=== PATIENT | female | born 1960 | race Caucasian/White ===

== ENCOUNTER 2017-04-21 22:24 | Observation (INO) | payer BC ==
[2017-04-22 01:06] LABS: Basophils % (A) 1 %; CH 31.6; CHCM 35.1; Eosinophils # (A) 0.1 k/uL (0-0.7); Eosinophils % (A) 2 %; HCT 39.4 % (34.0-46.0); HDW 2.65; HGB 13.5 gm/dL (11.4-16.0); Luc # (Auto) 0.19; Luc % (Auto) 3; Lymphocytes # (A) 1.7 k/uL (1.0-4.8); Lymphocytes % (A) 30 %; MCHC 34.3 g/dL (31.0-37.0); MCV 90.4 fL (80.0-100.0); Mean Platelet Volume 8.2; Monocytes # (A) 0.3 k/uL (0-1.0); Monocytes % (A) 5 %; Neutrophils # (A) 3.3 k/uL (1.3-7.7); Neutrophils % (A) 58 %; RBC 4.36 m/uL (3.80-5.40); RDW 13.5 % (11.5-15.5); WBC 5.6 k/uL (3.8-10.6); WBC (Perox) 5.88
[2017-04-22 01:16] LABS: ALT 47 U/L (9-52); AST 28 U/L (14-36); Alkaline Phosphatase 71 U/L (38-126); Amylase 122 U/L (30-110); Anion Gap 12 mmol/L; Blood Urea Nitrogen 17 mg/dL (7-17); Calcium 11.3 mg/dL (8.4-10.2); Carbon Dioxide 24 mmol/L (22-30); Chloride 105 mmol/L (98-107); Glucose 95 mg/dL (74-99); Non-African American GFR(MDRD) >60 (>60 ml/min/1.73 sqM); Potassium 4.2 mmol/L (3.5-5.1); Sodium 141 mmol/L (137-145); Total Bilirubin 0.4 mg/dL (0.2-1.3)
[2017-04-22 01:20] LABS: Appearance,Urine Clear (Clear); Bacteria,Urine Rare /hpf; Bilirubin,Urine Negative (Negative); Glucose,Urine (UA) Negative (Negative); Ketones,Urine Negative (Negative); Leukocyte Esterase,Urine Large (Negative); Nitrite,Urine Negative (Negative); Particle Count 733; Protein,Urine Negative (Negative); RBC,Urine 1 /hpf (0-5); Specific Gravity,Urine 1.004 (1.001-1.035); Squamous Epithelial Cell,Urine 1 /hpf (0-4); UA Billing (MACRO vs. MICRO) MICRO; Urobilinogen,Urine <2.0 mg/dL (<2.0); WBC,Urine 5 /hpf (0-5)
--- NOTE | 2017-04-22 02:29 | US ---
EXAM: US Abdomen Limited, Right Upper Quadrant CLINICAL HISTORY: Reason: Pain, attention RUQ TECHNIQUE: Real-time ultrasound of the right upper quadrant with image documentation. COMPARISON: No relevant prior studies available. FINDINGS: Liver: The liver is enlarged measuring 20 cm with increased echogenicity suggesting hepatic steatosis. Gallbladder: No gallstones, sludge, gallbladder wall thickening or pericholecystic fluid. Negative sonographic Butterfield's sign. Common bile duct: The common hepatic duct measures up to 4 mm. Pancreas: Unremarkable as visualized. Right kidney: The right kidney measures up to 10.1 cm. No stones. No hydronephrosis. IMPRESSION: Hepatomegaly with hepatic steatosis.
[2017-04-22] MEDS ORDERED: MORPHINE SULFATE 4 MG/ML SYRINGE IV STA (02:47)
[2017-04-22] MEDS ORDERED: NALOXONE 0.4 MG/ML 1 ML VIAL IV PRN (03:59)
[2017-04-22] MEDS ORDERED: MORPHINE SULFATE 4 MG/ML SYRINGE IV PRN (03:59)
--- NOTE | 2017-04-22 03:59 | ED ---
Abdominal Pain HPI - General Chief Complaint: Abdominal Pain Stated Complaint: Flank /Back Pain Time Seen by Provider: 04/21/17 23:34 Source: patient Mode of arrival: ambulatory Limitations: no limitations - History of Present Illness Initial Comments: This patient is a 56-year-old woman who presents to be valid for upper abdominal pain that does radiate towards her back. The patient states that it came on oxygen at 3-4 hours ago. This was a bit after she had eaten her dinner. It was coming by some nausea. She describes pain as a dull aching, constant, moderate intensity. She has not discovered any relieving factors and again symptom and made worse when she ate dinner. MD Complaint: abdominal pain Onset/Timin -: hour(s) Location: epigastric Radiation: back Migration to: no migration Severity: moderate Quality: aching Consistency: constant Improves With: nothing Worsens With: eating Associated Symptoms: nausea - Related Data Home Medications Medication Instructions Recorded Confirmed Escitalopram Oxalate [Lexapro] 04/21/17 buPROPion HCL [Wellbutrin XL] 300 mg PO DAILY 04/21/17 04/21/17 Allergies Allergy/AdvReac Type Severity Reaction Status Date / Time No Known Allergies Allergy Verified 04/21/17 22:41 Review of Systems ROS Statement: Those systems with pertinent positive or pertinent negative responses have been documented in the HPI. ROS Other: All systems not noted in ROS Statement are negative. Constitutional: Denies: fever, chills Respiratory: Denies: cough, dyspnea, wheezes Cardiovascular: Denies: chest pain, palpitations, edema, syncope Gastrointestinal: Reports: as per HPI, abdominal pain, nausea. Denies: vomiting , diarrhea, constipation, melena, hematochezia Genitourinary: Denies: dysuria, hematuria Musculoskeletal: Reports: as per HPI, back pain Skin: Denies: rash Neurological: Denies: headache, weakness, numbness Past Medical History Additional Past Medical History / Comment(s): anal fistula, sepsis, mystenia gravis. History of Any Multi-Drug Resistant Organisms: None Reported Past Surgical History: Section, Hysterectomy, Tonsillectomy Additional Past Surgical History / Comment(s): colonoscopy, thymectomy Past Psychological History: Anxiety, Depression Smoking Status: Current some day smoker Past Alcohol Use History: Occasional Past Drug Use History: None Reported - Past Family History Mother Family Medical History: Congestive Heart Failure (CHF) Sister(s) Family Medical History: Cancer Additional Family Medical History / Comment(s): breast cancer and leukemia General Exam Limitations: no limitations General appearance: alert, in no apparent distress, obese Head exam: Present: atraumatic, normocephalic Eye exam: Present: normal appearance. Absent: scleral icterus, conjunctival injection ENT exam: Present: normal oropharynx Neck exam: Present: normal inspection Respiratory exam: Present: normal lung sounds bilaterally. Absent: respiratory distress, wheezes, rales, rhonchi, stridor Cardiovascular Exam: Present: regular rate, normal rhythm, normal heart sounds GI/Abdominal exam: Present: soft, tenderness (There is mild epigastric tenderness without rebound or guarding), normal bowel sounds. Absent: distended , guarding, rebound, pulsatile mass, hernia Extremities exam: Present: normal inspection, normal capillary refill. Absent: pedal edema, calf tenderness Back exam: Present: normal inspection. Absent: CVA tenderness (R), CVA tenderness (L) Neurological exam: Present: alert Skin exam: Present: warm, dry, intact, normal color. Absent: rash Course Vital Signs 04/21/17 04/22/17 04/22/17 22:36 01:49 02:36 Temperature 97.9 F 97.0 F L 97.4 F L Pulse Rate 67 55 L 57 L Respiratory 20 16 18 Rate Blood Pressure 120/82 146/72 148/85 O2 Sat by Pulse 100 99 97 Oximetry 04/22/17 04:15 Temperature 97.6 F Pulse Rate 57 L Respiratory 16 Rate Blood Pressure 109/58 O2 Sat by Pulse 100 Oximetry Medical Decision Making - Medical Decision Making Patient is a 56-year-old woman with pancreatitis. She continued to be symptomatic despite medications and will admit patient to have the GI consult. - Lab Data Result diagrams: 04/22/17 00:41 04/22/17 00:41 Lab Results 04/22/17 04/22/17 04/22/17 Range/Units 00:31 00:31 00:41 WBC (3.8-10.6) k/uL RBC (3.80-5.40) m/uL Hgb (11.4-16.0) gm/dL Hct (34.0-46.0) % MCV (80.0-100.0) fL MCH (25.0-35.0) pg MCHC (31.0-37.0) g/dL RDW (11.5-15.5) % Plt Count (150-450) k/uL Neutrophils % % Lymphocytes % % Monocytes % % Eosinophils % % Basophils % % Neutrophils # (1.3-7.7) k/uL Lymphocytes # (1.0-4.8) k/uL Monocytes # (0-1.0) k/uL Eosinophils # (0-0.7) k/uL Basophils # (0-0.2) k/uL Sodium 141 (137-145) mmol/L Potassium 4.2 (3.5-5.1) mmol/L Chloride 105 (98-107) mmol/L Carbon Dioxide 24 (22-30) mmol/L Anion Gap 12 mmol/L BUN 17 (7-17) mg/dL Creatinine 0.80 (0.52-1.04) mg/dL Est GFR (MDRD) Af Amer >60 (>60 ml/min/1.73 sqM) Est GFR (MDRD) Non-Af >60 (>60 ml/min/1.73 sqM) Glucose 95 (74-99) mg/dL Calcium 11.3 H (8.4-10.2) mg/dL Total Bilirubin 0.4 (0.2-1.3) mg/dL AST 28 (14-36) U/L ALT 47 (9-52) U/L Alkaline Phosphatase 71 (38-126) U/L Total Protein 7.0 (6.3-8.2) g/dL Albumin 4.4 (3.5-5.0) g/dL Amylase 122 H (30-110) U/L Lipase 687 H (23-300) U/L Urine Color Colorless Urine Appearance Clear (Clear) Urine pH 8.0 (5.0-8.0) Ur Specific Dewar 1.004 (1.001-1.035) Urine Protein Negative (Negative) Urine Glucose (UA) Negative (Negative) Urine Ketones Negative (Negative) Urine Blood Negative (Negative) Urine Nitrite Negative (Negative) Urine Bilirubin Negative (Negative) Urine Urobilinogen <2.0 (<2.0) mg/dL Ur Leukocyte Esterase Large H (Negative) Urine RBC 1 (0-5) /hpf Urine WBC 5 (0-5) /hpf Urine WBC Clumps Rare H (None) /hpf Ur Squamous Epith Cells 1 (0-4) /hpf Urine Bacteria Rare H (None) /hpf Urine HCG, Qual Not Detected (Not Detectd) 04/22/17 Range/Units 00:41 WBC 5.6 (3.8-10.6) k/uL RBC 4.36 (3.80-5.40) m/uL Hgb 13.5 (11.4-16.0) gm/dL Hct 39.4 (34.0-46.0) % MCV 90.4 (80.0-100.0) fL MCH 31.0 (25.0-35.0) pg MCHC 34.3 (31.0-37.0) g/dL RDW 13.5 (11.5-15.5) % Plt Count 177 (150-450) k/uL Neutrophils % 58 % Lymphocytes % 30 % Monocytes % 5 % Eosinophils % 2 % Basophils % 1 % Neutrophils # 3.3 (1.3-7.7) k/uL Lymphocytes # 1.7 (1.0-4.8) k/uL Monocytes # 0.3 (0-1.0) k/uL Eosinophils # 0.1 (0-0.7) k/uL Basophils # 0.0 (0-0.2) k/uL Sodium (137-145) mmol/L Potassium (3.5-5.1) mmol/L Chloride (98-107) mmol/L Carbon Dioxide (22-30) mmol/L Anion Gap mmol/L BUN (7-17) mg/dL Creatinine (0.52-1.04) mg/dL Est GFR (MDRD) Af Amer (>60 ml/min/1.73 sqM) Est GFR (MDRD) Non-Af (>60 ml/min/1.73 sqM) Glucose (74-99) mg/dL Calcium (8.4-10.2) mg/dL Total Bilirubin (0.2-1.3) mg/dL AST (14-36) U/L ALT (9-52) U/L Alkaline Phosphatase (38-126) U/L Total Protein (6.3-8.2) g/dL Albumin (3.5-5.0) g/dL Amylase (30-110) U/L Lipase (23-300) U/L Urine Color Urine Appearance (Clear) Urine pH (5.0-8.0) Ur Specific Dewar (1.001-1.035) Urine Protein (Negative) Urine Glucose (UA) (Negative) Urine Ketones (Negative) Urine Blood (Negative) Urine Nitrite (Negative) Urine Bilirubin (Negative) Urine Urobilinogen (<2.0) mg/dL Ur Leukocyte Esterase (Negative) Urine RBC (0-5) /hpf Urine WBC (0-5) /hpf Urine WBC Clumps (None) /hpf Ur Squamous Epith Cells (0-4) /hpf Urine Bacteria (None) /hpf Urine HCG, Qual (Not Detectd) Disposition Clinical Impression: Abdominal pain, Pancreatitis Disposition: ADMITTED IP TO THIS HOSP Condition: Fair
[2017-04-22] MEDS: SODIUM CHLORIDE 0.9% 1,000 ML IV SCH ×3 (04:42→20:44)
[2017-04-22 05:03] VITALS: BMI 33.6
[2017-04-22] MEDS: ESCITALOPRAM 20 MG TAB PO SCH (08:34)
[2017-04-22] MEDS: buPROPion XL 300 MG TAB.ER.24H PO SCH (08:34)
[2017-04-22] MEDS: FAMOTIDINE 20 MG TAB PO SCH ×2 (08:34→23:24)
[2017-04-22 08:51] LABS: Amylase 115 U/L (30-110)
--- NOTE | 2017-04-22 12:03 | HP ---
DATE OF ADMISSION: CHIEF COMPLAINT: A 56-year-old white female with acute abdominal pain. HISTORY OF PRESENT ILLNESS: This is 56-year-old white female with a history of mood disorder, came to the hospital due to severe abdominal pain, patient never had before, in left upper quadrant of her abdomen 8 to 10 out of 10, worse after she ate her dinner with some nausea, dull aching, constant, minor intensity. No aggravating factor. Epigastric radiating to the back, constant with nausea. HOME MEDICATIONS: 1. Wellbutrin XL 300 daily. 2. Lexapro 20 daily. ALLERGIES: Negative. REVIEW OF SYSTEMS: Fourteen-point review of systems negative except as mentioned in HPI. PAST MEDICAL HISTORY: Anal fistula, sepsis, myasthenia gravis. SURGERY: , hysterectomy, tonsillectomy, colonoscopy, thymectomy. Anxiety, depression. Current every day smoker. She is . She has 2 kids. She likes to travel. PAST FAMILY HISTORY: Mother CHF, sister some kind of cancer. PHYSICAL EXAM: Temp 97, pulse 57 to 67, respiratory rate 18 to 20, blood pressure 120s to 140s over 60s to 80s. O2 is 97% to 100% on room air. CARDIOVASCULAR: S1, S2. LUNGS: Transmitted upper airway sounds. GI: Increased bowel sounds. Diffuse tenderness. No mass, no organomegaly. HEMATOLOGIC: Negative Homans. PSYCH: Fair mood and affect. OPHTHALMOLOGIC: Pupils equal, round, react to light and accommodation. NEUROLOGIC: Alert and oriented x3. PSYCHIATRIC: Fair mood and affect. INTEGUMENT: No rashes, excoriations, bruising. Labs show amylase 122, lipase 687. UA showed large leukocyte esterase. ASSESSMENT: 1. Acute pancreatitis. 2. Abdominal pain secondary to pancreatitis. 3. Acute dehydration. Surgical consultation. Ultrasound shows no evidence of cholecystitis. Will check lipid panel. Await further orders. In the meantime, clear liquid diet, pain control.
--- NOTE | 2017-04-22 12:13 | P.CONS ---
History of Present Illness - Reason for Consult Consult date: 04/22/17 pancreatitis Requesting physician: Storm Sanchez - History of Present Illness 56-year-old female admitted with one-day history of midepigastric pain after eating meatball dinner last night. Consultation requested for pancreatitis. No history of pancreatitis, EtOH abuse. History of myasthenia gravis diagnosed in 1982 remission in 1985. Denies fever, chills, changes in the color or urine or acholic stools. No weight loss. Calcium 11.3. Lipase 500-600 range. Normal LFTs. Ultrasound reported no stones or focal liver lesions. Hepatic steatosis. Review of Systems Constitutional: Denies fever, chills, sweats, weight gain, or loss. HEENT: Negative for migraines, blurred vision or loss, earaches, drainage, tinnitus, oral mucosal lesions, dysphagia, or odynophagia. CARDIAC: Negative for chest pain, arrhythmias, or palpitation. RESPIRATORY: Negative for shortness of breath, hemoptysis, cough, or sputum production. GI: See HPI for pertinent findings. : Negative for hematuria, urgency, frequency, polyuria, or dysuria. GYNc: Denies possibility of . Negative vaginal discharge. MUSCULOSKELETAL: Negative for muscle aches, swelling, arthritis, and arthralgias. NEUROLOGIC: Myasthenia gravis. Negative for stroke or TIA. ENDOCRINE: Negative for thyroid problems. SKIN: Negative for rash or itching. PSYCHIATRIC: Negative history for depression and anxiety All systems: negative (See HPI) Past Medical History Additional Past Medical History / Comment(s): anal fistula, sepsis, mystenia gravis. History of Any Multi-Drug Resistant Organisms: None Reported Past Surgical History: Section, Hysterectomy, Tonsillectomy Additional Past Surgical History / Comment(s): colonoscopy, thymectomy Past Anesthesia/Blood Transfusion Reactions: Previous Problems w/ Anesthesia Past Psychological History: Anxiety, Depression Smoking Status: Current some day smoker Past Alcohol Use History: Occasional Past Drug Use History: None Reported - Past Family History Mother Family Medical History: Congestive Heart Failure (CHF) Sister(s) Family Medical History: Cancer Additional Family Medical History / Comment(s): breast cancer and leukemia Medications and Allergies Home Medications Medication Instructions Recorded Confirmed Type buPROPion HCL [Wellbutrin XL] 300 mg PO DAILY 04/21/17 04/22/17 History Allergies Allergy/AdvReac Type Severity Reaction Status Date / Time No Known Allergies Allergy Verified 04/22/17 08:10 Physical Exam Vitals: Vital Signs Temp Pulse Pulse Resp BP BP Pulse Ox 04/22/17 07:00 97.8 F 57 L 14 113/71 98 04/22/17 04:40 97.8 F 53 L 17 136/81 98 04/22/17 04:15 97.6 F 57 L 16 109/58 100 04/22/17 02:36 97.4 F L 57 L 18 148/85 97 04/22/17 01:49 97.0 F L 55 L 16 146/72 99 04/21/17 22:36 97.9 F 67 20 120/82 100 Intake and Output 04/21/17 04/22/17 04/22/17 22:59 06:59 14:59 Intake Total 20 360 Balance 20 360 Intake: IV 20 Sodium Chloride 0.9% 1, 20 000 ml @ 20 mls/hr IV . Q24H [facility] Rx#:[id number] Oral 360 Other: Voiding Method Toilet Toilet Weight 86.183 kg 86.183 kg General appearance: The patient is alert, oriented, in no acute distress. HET: Head is normocephalic and atraumatic. Pupils are equal and reactive. Oropharynx is clear without lesions. Neck: Supple without lymphadenopathy. Trachea midline. Heart: S1 S2. Regular rate and rhythm. Lungs: No crackles or wheezes are heard. Abdomen: Soft, very mild midepigastric tenderness, nondistended with bowel sounds. No peritoneal signs. No palpable organomegaly or masses. Extremities: Normal skin color and turgor. No cyanosis, rash, ulceration, clubbing, or edema. Radial and pedal pulses are 2/4 bilaterally. Neurological: No focal deficits. Strength and sensation are grossly intact. Results CBC & Chem 7: 04/22/17 00:41 04/22/17 00:41 Labs: Abnormal Lab Results - Last 24 Hours (Table) 04/22/17 04/22/17 04/22/17 Range/Units 00:31 00:41 08:29 Calcium 11.3 H (8.4-10.2) mg/dL Amylase 122 H 115 H (30-110) U/L Lipase 687 H 507 H (23-300) U/L Ur Leukocyte Esterase Large H (Negative) Urine WBC Clumps Rare H (None) /hpf Urine Bacteria Rare H (None) /hpf US - abdomen: report reviewed (Dr. Combs) Assessment and Plan (1) Pancreatitis Narrative/Plan: Etiology unclear possible autoimmune possible viral possible passage of microlithiasis even though ultrasound imaging reported no stones and LFTs within normal limits. Status: Acute Plan: 1. IgG subclass 4. APARNA. Triglycerides. 2. Diet as tolerated. Discharge per medicine. Follow up in GI office after discharge for reevaluation. No further workup at this time. Thank you for this kind referral and the opportunity to participate in the care of your patient. This consultation was discussed with Dr. Combs. The impression and plan of care have been directed as dictated.
[2017-04-22] MEDS: ACETAMINOPHEN TAB 325 MG TAB PO PRN ×2 (13:45→20:22)
[2017-04-22] MEDS ORDERED: traMADol 50 MG TAB PO PRN (15:31)
--- NOTE | 2017-04-22 17:08 | P.GSCN ---
History of Present Illness Consult date: 04/22/17 Reason for Consult: Pancreatitis. History of present illness: Thank you very much for asking us to see this patient. She is a 56-year-old white female who developed a first episode of midepigastric pain last night after meatball dinner. Had some dry heaves. No past history of similar problem. No excessive alcohol intake. She presented to the emergency room. Amylase and lipase were elevated with a lipase over the 600 range. It has dropped down low but today. LFTs were otherwise normal. Showed no evidence of gallstones. Does have elevated calcium of 11.3. Past history well-documented. Positive for anxiety depression. History of MS. Anal fistula surgery. Otherwise fairly healthy. Family history. The for gallbladder disease in her mother and a sister. No chest pain. No cough hemoptysis. No urinary symptoms. No vaginal discharge. systems review as above. On examination patient is well-built well-nourished anicteric. Overweight. In no acute distress. Temperature is normal. Vitals are normal. Abdomen is quite soft with minimal epigastric tenderness no guarding or rebound no mass in the right upper quadrant or epigastric area. No hernias noted. Extremities normal. TOW DRIVER intact. Labs were reviewed. Amylase and lipase as above slowly improving. WBC is normal. Impression. Pancreatitis etiology undetermined. No evidence of gallstones. Rule out hyperlipidemia hypercalcemia. Recommendation. Continued medical management. He would the GI consult. Nothing surgical to offer at this time. Past Medical History Additional Past Medical History / Comment(s): anal fistula, sepsis, mystenia gravis. History of Any Multi-Drug Resistant Organisms: None Reported Past Surgical History: Section, Hysterectomy, Tonsillectomy Additional Past Surgical History / Comment(s): colonoscopy, thymectomy Past Anesthesia/Blood Transfusion Reactions: Previous Problems w/ Anesthesia Past Psychological History: Anxiety, Depression Smoking Status: Current some day smoker Past Alcohol Use History: Occasional Past Drug Use History: None Reported - Past Family History Mother Family Medical History: Congestive Heart Failure (CHF) Sister(s) Family Medical History: Cancer Additional Family Medical History / Comment(s): breast cancer and leukemia Medications and Allergies Home Medications Medication Instructions Recorded Confirmed Type buPROPion HCL [Wellbutrin XL] 300 mg PO DAILY 04/21/17 04/22/17 History Allergies Allergy/AdvReac Type Severity Reaction Status Date / Time No Known Allergies Allergy Verified 04/22/17 08:10 Surgical - Exam Vital Signs Temp Pulse Resp BP Pulse Ox 97.9 F 67 20 120/82 100 04/21/17 22:36 04/21/17 22:36 04/21/17 22:36 04/21/17 22:36 04/21/17 22:36 Results - Labs 04/22/17 00:41 04/22/17 00:41 Abnormal Lab Results - Last 24 Hours (Table) 04/22/17 04/22/17 04/22/17 Range/Units 00:31 00:41 08:23 Calcium 11.3 H (8.4-10.2) mg/dL Triglycerides 363 H (<150) mg/dL Amylase 122 H (30-110) U/L Lipase 687 H (23-300) U/L Ur Leukocyte Esterase Large H (Negative) Urine WBC Clumps Rare H (None) /hpf Urine Bacteria Rare H (None) /hpf 04/22/17 Range/Units 08:29 Calcium (8.4-10.2) mg/dL Triglycerides (<150) mg/dL Amylase 115 H (30-110) U/L Lipase 507 H (23-300) U/L Ur Leukocyte Esterase (Negative) Urine WBC Clumps (None) /hpf Urine Bacteria (None) /hpf Microbiology - Last 24 Hours (Table) 04/22/17 11:20 Urine Culture - Preliminary Urine,Voided Diabetes panel 04/22/17 04/22/17 Range/Units 00:41 08:23 Sodium 141 (137-145) mmol/L Potassium 4.2 (3.5-5.1) mmol/L Chloride 105 (98-107) mmol/L Carbon Dioxide 24 (22-30) mmol/L BUN 17 (7-17) mg/dL Creatinine 0.80 (0.52-1.04) mg/dL Glucose 95 (74-99) mg/dL Calcium 11.3 H (8.4-10.2) mg/dL AST 28 (14-36) U/L ALT 47 (9-52) U/L Alkaline Phosphatase 71 (38-126) U/L Total Protein 7.0 (6.3-8.2) g/dL Albumin 4.4 (3.5-5.0) g/dL Triglycerides 363 H (<150) mg/dL Calcium panel 04/22/17 Range/Units 00:41 Calcium 11.3 H (8.4-10.2) mg/dL Albumin 4.4 (3.5-5.0) g/dL Pituitary panel 04/22/17 Range/Units 00:41 Sodium 141 (137-145) mmol/L Potassium 4.2 (3.5-5.1) mmol/L Chloride 105 (98-107) mmol/L Carbon Dioxide 24 (22-30) mmol/L BUN 17 (7-17) mg/dL Creatinine 0.80 (0.52-1.04) mg/dL Glucose 95 (74-99) mg/dL Calcium 11.3 H (8.4-10.2) mg/dL Adrenal panel 04/22/17 Range/Units 00:41 Sodium 141 (137-145) mmol/L Potassium 4.2 (3.5-5.1) mmol/L Chloride 105 (98-107) mmol/L Carbon Dioxide 24 (22-30) mmol/L BUN 17 (7-17) mg/dL Creatinine 0.80 (0.52-1.04) mg/dL Glucose 95 (74-99) mg/dL Calcium 11.3 H (8.4-10.2) mg/dL Total Bilirubin 0.4 (0.2-1.3) mg/dL AST 28 (14-36) U/L ALT 47 (9-52) U/L Alkaline Phosphatase 71 (38-126) U/L Total Protein 7.0 (6.3-8.2) g/dL Albumin 4.4 (3.5-5.0) g/dL
[2017-04-22 21:34] LABS: ANA w/Reflex to Titer NEGATIVE (NEGATIVE)
[2017-04-23 02:15] VITALS: RESP 16
[2017-04-23] MEDS: SODIUM CHLORIDE 0.9% 1,000 ML IV SCH (04:23)
[2017-04-23] MEDS: FAMOTIDINE 20 MG TAB PO SCH (07:16)
[2017-04-23] MEDS: ESCITALOPRAM 20 MG TAB PO SCH (07:17)
[2017-04-23] MEDS: buPROPion XL 300 MG TAB.ER.24H PO SCH (07:17)
[2017-04-23 07:45] LABS: Ionized Calcium 5.3 mg/dL (4.5-5.3)
[2017-04-23 08:17] LABS: Amylase 46 U/L (30-110); Calcium 8.9 mg/dL (8.4-10.2)
[2017-04-23 08:39] VITALS: BP 123/55; PULSE 58; TEMP 97.5
[2017-04-23] MEDS ORDERED: SULFAMETHOX-TMP 800-160MG 1 EACH TAB PO SCH (11:00)
--- NOTE | 2017-04-23 11:06 | P.DS ---
Providers Date of admission: 04/22/17 03:59 Expected date of discharge: 04/23/17 Attending physician: Storm Pineda Consults: 04/22/17 04:00 Consult Physician Routine Consulting Provider: Mckenzie Null Consult Reason/Comments: pancreatitis. abdominal pain. Do you want consulting provider notified?: Yes 04/22/17 08:08 Consult Physician Routine Consulting Provider: Valeriy Londono Consult Reason/Comments: abdominal pain Do you want consulting provider notified?: Yes Primary care physician: Physician Nonstaff Hospital Course: 56-year-old female presented to the emergency room with a first-time new onset mid epigastric pain after eating a meatball dinner patient denies any use of alcohol. Denies any prior episodes of pancreatitis. Patient has a history of myasthenia gravis diagnosed in 1982 has been in remission since 1985 H was admitted to the services of the attending. A gastroenterology consultation obtained. Patient was noted to have normal liver function studies lipase on admission was 500. Patient denied any weight loss. Ultrasound of the abdomen showed no stones no focal liver lesions. Hepatic steatosis. Patient was started on IV hydration. GI recommended the patient could be discharged and they would see the patient in a outpatient setting for reevaluation there was no further workup at this time. Additionally patient was seen by surgical service Dr. Petty who indicated there was no surgical intervention warranted at this time no further recommendations at the time of discharge patient tolerated diet was no further episodes of midepigastric discomfort patient was felt to be stable and appropriate to proceed with discharge home the lipase and amylase were normal. The lipase was 110. Amylase 46. AST and ALT were not elevated Impression discharge diagnosis Present on admission midepigastric pain unclear etiology suspect acute pancreatitis with elevated pancreatic enzymes Present on admission acute pancreatitis Etiology unclear possible autoimmune possible viral possible passage of microlithiasis even though ultrasound imaging reported no stones and LFTs within normal limits. History of myasthenia gravis in remission Present on admission UTI not ruled out The above dictated assessment and findings were discussed with dr pineda . Impression and the plan of care have been dictated as directed. Noris Lyons nurse practitioner acting as a scribe for dr pineda Patient Condition at Discharge: Fair Plan - Discharge Summary New Discharge Prescriptions: New Sulfamethox-Tmp 800-160Mg [Bactrim DS 800-160 mg] 1 each PO BID #14 tab No Action buPROPion HCL [Wellbutrin XL] 300 mg PO DAILY Discharge Medication List buPROPion HCL [Wellbutrin XL] 300 mg PO DAILY 04/21/17 [History] Sulfamethox-Tmp 800-160Mg [Bactrim DS 800-160 mg] 1 each PO BID #14 tab [Rx] Follow up Appointment(s)/Referral(s): Nonstaff,Physician [Primary Care Provider] - 1-2 days Shiraz Combs MD [STAFF PHYSICIAN] - 1 Week Patient Instructions/Handouts: Abdominal Pain (ED) Activity/Diet/Wound Care/Special Instructions: IgG subclass 4 and APARNA blood testing; Call GI office after discharge for results. [phone] Follow-up on the parathyroid study were sent out within the next couple days results should be back call dr pineda office [phone] Discharge Disposition: HOME SELF-CARE
[2017-04-23 11:30] LABS: Appearance,Urine Clear (Clear); Bacteria,Urine Rare /hpf; Bilirubin,Urine Negative (Negative); Glucose,Urine (UA) Negative (Negative); Ketones,Urine Negative (Negative); Leukocyte Esterase,Urine Moderate (Negative); Mucus,Urine Rare /hpf; Nitrite,Urine Negative (Negative); PH, Urine 6.5 (5.0-8.0); Particle Count 1524; Protein,Urine Negative (Negative); RBC,Urine 2 /hpf (0-5); Specific Gravity,Urine 1.003 (1.001-1.035); Squamous Epithelial Cell,Urine 1 /hpf (0-4); UA Billing (MACRO vs. MICRO) MICRO; Urobilinogen,Urine <2.0 mg/dL (<2.0); WBC,Urine 3 /hpf (0-5)
--- NOTE | 2017-04-23 11:36 | P.PN ---
Subjective Principal diagnosis: Pancreatitis 66-year-old female with a history of myasthenia gravis admitted with epigastric pain and elevated amylase lipase system with acute pancreatitis. Etiology of pancreatitis and clear. APARNA screen negative. Subclass IgG1-4 pending. Abdominal pain improved. Tolerating diet. Triglycerides 363. Objective - Vital Signs Vital signs: Vital Signs Temp 97.5 F L 04/23/17 07:00 Pulse 58 L 04/23/17 07:00 Resp 16 04/23/17 07:00 BP 123/55 04/23/17 07:00 Pulse Ox 97 04/23/17 07:00 Intake & Output 04/22/17 04/23/17 04/23/17 18:59 06:59 18:59 Intake Total 960 1500 600 Balance 960 1500 600 Intake: IV 1500 Sodium Chloride 0.9% 1, 1500 000 ml @ 125 mls/hr IV . Q8H STEPHANIE Rx#:[id number] Oral 960 600 Other: Voiding Method Toilet Toilet Toilet # Voids 2 2 - Exam General appearance: The patient is alert, oriented, in no acute distress. HET: Head is normocephalic and atraumatic. Pupils are equal and reactive. Oropharynx is clear without lesions. Neck: Supple without lymphadenopathy. Trachea midline. Heart: S1 S2. Regular rate and rhythm. Lungs: No crackles or wheezes are heard. Abdomen: Soft, nontender, nondistended with bowel sounds. No peritoneal signs. No palpable organomegaly or masses. Extremities: Normal skin color and turgor. No cyanosis, rash, ulceration, clubbing, or edema. Radial and pedal pulses are 2/4 bilaterally. Neurological: No focal deficits. Strength and sensation are grossly intact. - Labs CBC & Chem 7: 04/22/17 00:41 04/22/17 00:41 Labs: Abnormal Lab Results - Last 24 Hours (Table) 04/22/17 04/23/17 Range/Units 08:23 10:56 Triglycerides 363 H (<150) mg/dL Ur Leukocyte Esterase Moderate H (Negative) Urine Bacteria Rare H (None) /hpf Urine Mucus Rare H (None) /hpf Microbiology - Last 24 Hours (Table) 04/22/17 11:20 Urine Culture - Preliminary Urine,Voided Assessment and Plan (1) Pancreatitis Narrative/Plan: Etiology unclear Status: Acute Plan: 1. Agreeable for discharge. APARNA screen was discussed with patient. Patient was advised to follow up with primary regarding elevated triglyceride level. Patient can call GI office after discharge for additional chemistry results. No further workup at this time. Follow-up in office as needed. Assessment and plan a care discussed with Dr. Combs
[2017-04-23 12:29] LABS: IgG Subclass 3 73.3 mg/dL (11.0-85.0)
[2017-04-23 14:34] LABS: IgG Subclass 4 1.4 mg/dL (3.0-175.0)
== END 2017-04-23 12:08 | disposition home or self-care (01) ==
LOC: EC 22:24 → 3SUR 04-22 03:59
PROVIDERS: ADMIT Family Medicine; ATTEND Family Medicine
DX: R10.13 Epigastric pain (principal); K85.90 Acute pancreatitis without necrosis or infection, unspecified; G70.00 Myasthenia gravis without (acute) exacerbation; N39.0 Urinary tract infection, site not specified; E86.0 Dehydration; F41.9 Anxiety disorder, unspecified; F32.9 Major depressive disorder, single episode, unspecified; F39 Unspecified mood [affective] disorder; Z79.899 Other long term (current) drug therapy; F17.200 Nicotine dependence, unspecified, uncomplicated; Z82.49 Family history of ischemic heart disease and other diseases of the circulatory system; E66.3 Overweight
CPT/HCPCS: 99285; 96374; 96361 ×2; 36415; 80053; 82330; 82150 ×2; 82310; 83690 ×2; 84478; 85025; 81001 ×2; 81025; 82787; 86038; 83970; 87086; 76705; G0378 ×2; J2270

== ENCOUNTER 2018-05-27 01:32 | Emergency (ER) | payer BC, OTHER ==
[2018-05-27 01:51] VITALS: BP 130/84; PULSE 55; TEMP 97.5
[2018-05-27] MEDS ORDERED: MORPHINE SULFATE 4 MG/ML SYRINGE IM STA (02:14)
--- NOTE | 2018-05-27 02:27 | ED ---
General Adult HPI - General Chief complaint: Extremity Injury, Lower Stated complaint: Leg Pain Time Seen by Provider: 05/27/18 01:57 Source: patient, RN notes reviewed Mode of arrival: wheelchair Limitations: no limitations - History of Present Illness Initial comments: Patient 57-year-old female presented to the emergency room today with a chief complaint right lower back pain radiating down the right leg. Patient is with the symptoms started approximately one month ago. She states that she has follow-up the family doctor multiple times. She states she was taking ibuprofen along with Robaxin. She states she has now started taking Cataflam along with Ultram. She states she just started Cataflam earlier today. She states that she still expresses pain in the right buttocks area radiating down to the right calf. She states it is a constant type pain but worse with movements. She denies any injury or trauma. Does admit that she had recent x- rays of the hip and back through the family doctor. Patient denies any bowel or bladder incontinence retention. Denies any saddle anesthesia. Patient denies any recent fever, chills, shortness of breath, chest pain, abdominal pain , nausea or vomiting, dysuria or hematuria, constipation or diarrhea, headaches or visual changes, or any other complaints. - Related Data Home Medications Medication Instructions Recorded Confirmed Diclofenac Sodium 50 mg PO 05/27/18 Escitalopram [Lexapro] 20 mg PO DAILY 05/27/18 05/27/18 Ibuprofen [Motrin] 400 mg PO Q6HR PRN 05/27/18 05/27/18 traMADol HCl [Ultram] 50 mg PO Q6HR PRN 05/27/18 05/27/18 Allergies Allergy/AdvReac Type Severity Reaction Status Date / Time No Known Allergies Allergy Verified 05/27/18 01:51 Review of Systems ROS Statement: Those systems with pertinent positive or pertinent negative responses have been documented in the HPI. ROS Other: All systems not noted in ROS Statement are negative. Past Medical History Additional Past Medical History / Comment(s): anal fistula, sepsis, mystenia gravis. History of Any Multi-Drug Resistant Organisms: None Reported Past Surgical History: Section, Hysterectomy, Orthopedic Surgery, Tonsillectomy Additional Past Surgical History / Comment(s): colonoscopy, thymectomy, left knee Past Anesthesia/Blood Transfusion Reactions: Previous Problems w/ Anesthesia Past Psychological History: Anxiety, Depression Smoking Status: Current every day smoker Past Alcohol Use History: Occasional Past Drug Use History: None Reported - Past Family History Mother Family Medical History: Congestive Heart Failure (CHF) Sister(s) Family Medical History: Cancer Additional Family Medical History / Comment(s): breast cancer and leukemia General Exam - General Exam Comments Initial Comments: General: The patient is awake and alert, in no distress, and does not appear acutely ill. Neck: The neck is supple. Cardiovascular: There is a regular rate and rhythm. Respiratory: Lungs are clear to auscultation, respirations are non-labored, breath sounds are equal. No wheezes, stridor, rales, or rhonchi. Back: Normal appearance of the thoracic and lumbar spine with no step-off deformity. No tenderness midline. Patient does have tenderness lower SI joint on the right. Musculoskeletal: Normal ROM. Strength 5/5. Sensation intact. Pulses equal bilaterally 2+. Neurological: A&O x 3. CN II-XII intact, There are no obvious motor or sensory deficits. Coordination appears grossly intact. Speech is normal. Skin: Skin is warm and dry and no rashes or lesions are noted. Psychiatric: Cooperative, appropriate mood & affect, normal judgment. Limitations: no limitations Course Vital Signs 05/27/18 01:47 Temperature 97.5 F L Pulse Rate 55 L Respiratory 99 H Rate Blood Pressure 130/84 Medical Decision Making - Medical Decision Making Patient is a 7-year-old female presenting for right-sided sciatic type pain. Patient states symptoms started approximately been seen by the family doctor multiple times had recent x-rays. Patient states unable sleep tonight her reason for coming here to the emergency room. Denies any bowel or bladder incontinence retention. Denies any saddle and she is up. Was discussed with patient about possible MRI to evaluate this back pain. Signs and symptoms of emergent MRI were discussed. At this time she is advised to follow-up family doctor tomorrow morning. Advised continue appears to prescribed medications. Patient will be given dose of morphine for her pain to help her sleep tonight and advised to start with family doctor in the morning. Patient declined steroids here. Disposition Clinical Impression: Lumbar radiculopathy Disposition: HOME SELF-CARE Condition: Good Instructions: Lumbar Radiculopathy (ED) Additional Instructions: Please use medication as discussed. Please follow-up with family doctor in the next 2 days. Please discuss about possible MRI. Please return to emergency room if the symptoms increase or worsen or for any other concerns. Is patient prescribed a controlled substance at d/c from ED?: No Referrals: Osmar Vega MD [Primary Care Provider] - 1-2 days Time of Disposition: 02:27
[2018-05-27 02:49] VITALS: RESP 18
== END 2018-05-27 02:42 | disposition home or self-care (01) ==
LOC: EC 01:32
DX: M54.16 Radiculopathy, lumbar region (principal); F41.9 Anxiety disorder, unspecified; F32.9 Major depressive disorder, single episode, unspecified; F17.200 Nicotine dependence, unspecified, uncomplicated; Z79.1 Long term (current) use of non-steroidal anti-inflammatories (NSAID); Z79.899 Other long term (current) drug therapy
CPT/HCPCS: 99283; 96372; J2270